=== PATIENT | female | born 1975 | race Caucasian/White ===

== ENCOUNTER 2017-10-13 13:35 | Emergency (ER) | payer MEDICAID ==
[2017-10-13 13:52] VITALS: BMI 26.6
[2017-10-13 13:55] VITALS: BP 119/82; PULSE 103; RESP 20; TEMP 99.1; O2SAT 98
--- NOTE | 2017-10-13 14:05 | C.PDOC ---
History Of Present Illness 41 year old female presents to the ER complaining of chills, sore throat, malaise, generalized body aches, and cough since last night. She did not take any medication for the symptoms. She denies having any chest pain, SOB, abdominal pain, urinary symptoms or rash. Time Seen by Provider: 10/13/17 14:01 Chief Complaint (Nursing): Flu-like Symptoms History Per: Patient History/Exam Limitations: no limitations Onset/Duration Of Symptoms: Days Current Symptoms Are (Timing): Still Present Location Of Pain: Diffuse Myalgias Associated Symptoms: Chills, Sore Throat, Cough Severity: Moderate Past Medical History Reviewed: Historical Data, Nursing Documentation, Vital Signs Vital Signs: Last Vital Signs Temp 99.1 F 10/13/17 13:52 Pulse 103 H 10/13/17 13:52 Resp 20 10/13/17 13:52 BP 119/82 10/13/17 13:52 Pulse Ox 98 10/13/17 16:57 - Medical History PMH: No Chronic Diseases Surgical History: No Surg Hx Family History: States: No Known Family Hx - Social History Hx Alcohol Use: Yes Hx Substance Use: No - Immunization History Hx Tetanus Toxoid Vaccination: No Hx Influenza Vaccination: No Hx Pneumococcal Vaccination: No Review Of Systems Constitutional: Positive for: Chills, Malaise Eyes: Negative for: Vision Change, Redness ENT: Positive for: Throat Pain. Negative for: Ear Pain Cardiovascular: Negative for: Chest Pain Respiratory: Positive for: Cough. Negative for: Shortness of Breath Gastrointestinal: Negative for: Vomiting, Abdominal Pain, Diarrhea Genitourinary: Negative for: Dysuria Skin: Negative for: Rash Neurological: Negative for: Headache Physical Exam - Physical Exam Appears: Non-toxic, No Acute Distress Skin: Normal Color, Warm, Dry, No Rash Head: Atraumatic, Normacephalic Eye(s): bilateral: Normal Inspection Ear(s): Bilateral: Normal (no erythema) Nose: Normal Oral Mucosa: Moist Throat: Normal, No Erythema, No Exudate Neck: Supple Chest: Symmetrical Cardiovascular: Rhythm Regular, No Murmur Respiratory: Normal Breath Sounds, No Accessory Muscle Use, No Rales, No Rhonchi , No Wheezing Gastrointestinal/Abdominal: Normal Exam, Soft, No Tenderness Extremity: Normal ROM, No Deformity, No Swelling Neurological/Psych: Oriented x3, Normal Speech Gait: Steady ED Course And Treatment O2 Sat by Pulse Oximetry: 98 (RA) Pulse Ox Interpretation: Normal Medical Decision Making Medical Decision Making: Patient with multiple symptoms since yesterday. Patient has no fever and exam was unremarkable. Lungs clear bilaterally and O2 saturation is adequate. Patient has not received Flu vaccine. Based on history and exam, as well as widespread influenza these symptoms are most likely Influenza. Recommend supportive treatment. Rx given. Instruct to follow up with primary doctor or clinic. Disposition Counseled Patient/Family Regarding: Diagnosis, Need For Followup, Rx Given - Disposition Referrals: [facility] [Outside] [facility] [Outside] Disposition: HOME/ ROUTINE Disposition Time: 15:23 Condition: GOOD Additional Instructions: You have Influenza Take Tamiflu twice a day for 5 days. Take Tylenol or Motrin alternating every 4-6 hours for Fever 100.4F or higher. Rest and drink plenty of fluids. Follow up with your primary medical doctor or clinic in 2-5 days for further evaluation. Return to the emergency department at any time if symptoms persist or worsen. Usted tiene Influenza [place] Tamiflu dos veces al da zain 5 thomas. [place] Tylenol o Motrin alternando cada 4-6 horas para Fiebre 100.4F o superior. Descansa y natalie muchos lquidos. Tre un seguimiento con matt mdico primario o clnica en 2-5 thomas para justin evaluacin adicional. Regrese al departamento de emergencia en cualquier momento si los sntomas persisten o empeoran. Prescriptions: Ibuprofen [Motrin] 1 tab PO TID PRN #30 tab PRN Reason: Pain Oseltamivir [Tamiflu] 75 mg PO BID #9 cap Promethazine DM [Phenergan DM Syrup] 5 ml PO Q8 PRN #3 oz PRN Reason: Cough Instructions: Influenza (ED) Forms: [facility] [employer] (Costa Rican), Work Excuse Print Language: TURKISH - POA Present On Arrival: None - Clinical Impression Clinical Impression: Influenza - PA / ENRICHMENT ASSISTANT / Resident Statement MD/DO has reviewed & agrees with the documentation as recorded. - Scribe Statement The provider has reviewed the documentation as recorded by the Scribe Summen Chang Provider Attestation All medical record entries made by the Scribe were at my direction and personally dictated by me. I have reviewed the chart and agree that the record accurately reflects my personal performance of the history, physical exam, medical decision making, and the department course for this patient. I have also personally directed, reviewed, and agree with the discharge instructions and disposition.
== END 2017-10-13 15:27 | disposition home or self-care (01) ==
LOC: C.ER 13:35
DX: J11.1 Influenza due to unidentified influenza virus with other respiratory manifestations (principal)

== ENCOUNTER 2018-04-21 23:34 | Emergency (ER) | payer MEDICAID ==
[2018-04-21 23:34] VITALS: BMI 26.6
[2018-04-21 23:44] VITALS: RESP 20; O2SAT 99
[2018-04-22] MEDS ORDERED: Sodium Chloride 0.9% 1,000 ML IV ONE (00:20)
--- NOTE | 2018-04-22 00:20 | C.PDOC ---
History Of Present Illness The patient presents to the ED for evaluation of diarrhea which began after she ate at a barbeque around 3-4 days ago. Patient reports having around 5-6 episodes of loose bowel movements today and reports mild, crampy abdominal pain. Otherwise, patient denies fever, chills, nausea, vomiting. Time Seen by Provider: 04/22/18 00:20 Chief Complaint (Nursing): GI Problem History Per: Patient History/Exam Limitations: no limitations Onset/Duration Of Symptoms: Days Current Symptoms Are (Timing): Still Present Context: Other Severity: Moderate Pain Scale Rating Of: 4 Location Of Pain/Discomfort: Diffuse Radiation Of Pain To:: None Quality Of Discomfort: Dull, Cramping Associated Symptoms: Diarrhea. denies: Fever, Chills, Nausea, Vomiting Exacerbating Factors: Food Alleviating Factors: None Last Bowel Movement: Today Additional History Per: Patient Abnormal Vaginal Bleeding: No Past Medical History Reviewed: Historical Data, Nursing Documentation, Vital Signs Vital Signs: Last Vital Signs Temp 98.4 F 04/21/18 23:41 Pulse 104 H 04/21/18 23:41 Resp 20 04/21/18 23:41 BP 139/93 H 04/21/18 23:41 Pulse Ox 99 04/22/18 00:57 Family History: States: No Known Family Hx - Social History Hx Alcohol Use: Yes Hx Substance Use: No - Immunization History Hx Tetanus Toxoid Vaccination: No Hx Influenza Vaccination: No Hx Pneumococcal Vaccination: No Review Of Systems Constitutional: Negative for: Fever, Chills ENT: Negative for: Throat Pain Cardiovascular: Negative for: Chest Pain Respiratory: Negative for: Shortness of Breath Gastrointestinal: Positive for: Abdominal Pain, Diarrhea. Negative for: Nausea , Vomiting Genitourinary: Negative for: Dysuria Musculoskeletal: Negative for: Back Pain Skin: Negative for: Rash Neurological: Negative for: Weakness Psych: Negative for: Anxiety Physical Exam - Physical Exam Appears: Non-toxic, No Acute Distress Skin: Warm, Dry Cardiovascular: Rhythm Regular Gastrointestinal/Abdominal: Soft, Tenderness, No Distention, No Guarding Back: Normal Inspection Extremity: Normal ROM Extremity: Bilateral: Atraumatic Gait: Steady ED Course And Treatment - Laboratory Results Result Diagrams: 04/22/18 00:53 04/22/18 00:53 O2 Sat by Pulse Oximetry: 99 Pulse Ox Interpretation: Normal Progress Note: Patient is resting comfortably, in no distress, abdomen is soft, no rebound or guarding, and is tolerating PO. Patient has no signs or symptoms to suggest surgical pathology. Patient was advised to follow up without fail with physician/clinic or to return to the ER for reevaluation in 1-2 days. Reevaluation Time: 01:48 Reassessment Condition: Improved Medical Decision Making Medical Decision Making: Upon provider reevaluation patient is feeling better, is medically stable, and requires no further treatment in the ED at this time. Patient will be discharged home . Counseling was provided and all questions were answered regarding diagnosis and need for follow up with the referred clinic. There is agreement to discharge plan. Return if symptoms persist or worsen. Disposition Counseled Patient/Family Regarding: Studies Performed, Diagnosis, Need For Followup, Rx Given - Disposition Referrals: [facility] [Outside] Disposition: HOME/ ROUTINE Disposition Time: 00:20 Condition: STABLE Additional Instructions: Please return if symptoms recur. May also use [employer] for the diarrhea Instructions: Food Poisoning (DC) Forms: [employer] (Kyrgyz) Print Language: ICELANDIC - Clinical Impression Clinical Impression: Diarrhea - Scribe Statement The provider has reviewed the documentation as recorded by the Scribe (Tamika Mckeon) Provider Attestation: All medical record entries made by the Scribe were at my direction and personally dictated by me. I have reviewed the chart and agree that the record accurately reflects my personal performance of the history, physical exam, medical decision making, and the department course for this patient. I have also personally directed, reviewed, and agree with the discharge instructions and disposition.
[2018-04-22] MEDS ORDERED: Sodium Chloride 0.9% 1,000 ML ONE (00:41)
[2018-04-22 00:55] LABS: BASO # 0.1 K/uL (0.0-0.2); BASO % 1.3 % (0.0-2.0); EOS # 0.1 K/uL (0.0-0.7); EOS % 1.5 % (0.0-4.0); HEMOGLOBIN 11.7 g/dL (11.0-16.0); LYMPH # 2.4 K/uL (1.0-4.3); MEAN CELL VOLUME 84.9 fL (81.0-99.0); MEAN CORPUSCULAR HEMOGLOBIN 28.7 pg (27.0-31.0); MEAN CORPUSCULAR HGB CONC 33.9 g/dL (33.0-37.0); MEAN PLATELET VOLUME 7.2 fL (7.2-11.7); MONO # 0.8 K/uL (0.0-0.8); NEUT # 5.2 K/uL (1.8-7.0); NEUT % 60.2 % (50.0-75.0); RBC 4.06 Mil/uL (3.80-5.20); RED CELL DISTRIBUTION WIDTH 13.1 % (11.5-14.5); WHITE BLOOD COUNT 8.6 K/uL (4.8-10.8)
[2018-04-22 01:14] LABS: ALB/GLOB RATIO 1.3 (1.0-2.1); ALBUMIN 3.9 g/dL (3.5-5.0); ALT/SGPT 24 U/L (9-52); AST/SGOT 20 U/L (14-36); BLOOD UREA NITROGEN 11 mg/dL (7-17); CALCIUM 9.2 mg/dl (8.6-10.4); GFR AFRICAN-AMERICAN > 60; GFR NON-AFRICAN AMERICAN > 60; LIPASE 178 U/L (23-300)
[2018-04-22 01:55] LABS: HCG,QUALITATIVE URINE NEGATIVE (NEGATIVE)
[2018-04-22 01:58] LABS: SQUAMOUS EPITHIAL 12 /hpf (0-5); URINE BACTERIA RARE (<OCC); URINE BILIRUBIN NEGATIVE (NEGATIVE); URINE CLARITY Hazy (Clear); URINE COLOR Yellow (YELLOW); URINE GLUCOSE (UA) NORMAL (Normal); URINE LEUKOCYTE ESTERASE NEG Leu/uL (Negative); URINE PROTEIN NEGATIVE (NEGATIVE); URINE UROBILINOGEN NORMAL mg/dL (0.2-1.0)
[2018-04-22 02:01] LABS: URINE BLOOD TRACE (NEGATIVE)
[2018-04-22 02:15] VITALS: BP 130/90; PULSE 100; TEMP 98.6
== END 2018-04-22 02:13 | disposition home or self-care (01) ==
LOC: C.ER 23:34
DX: R19.7 Diarrhea, unspecified (principal)
CPT/HCPCS: 80053; 81001; 83690; 84703; 85025; 96361; 96374; 99284; C9113; J7030

== ENCOUNTER 2018-10-27 10:22 | Emergency (ER) | payer MEDICAID ==
[2018-10-27 10:23] VITALS: BMI 26.6
[2018-10-27 10:33] VITALS: TEMP 98.1
[2018-10-27 12:07] VITALS: BP 101/68; PULSE 81; RESP 19; O2SAT 97
--- NOTE | 2018-10-27 16:40 | C.PDOC ---
History Of Present Illness 42 y/o female presents to the ER complaining of sore throat which has been present for the past 5 days. Patient states that he has been able to tolerate PO. Patient denies having fever,chills, cough, nausea, vomiting, diarrhea, sick contacts, and recent travel. Chief Complaint (Nursing): ENT Problem History Per: Patient History/Exam Limitations: no limitations Onset/Duration Of Symptoms: Days Current Symptoms Are (Timing): Still Present Severity: Moderate Past Medical History Reviewed: Historical Data, Nursing Documentation, Vital Signs Vital Signs: Last Vital Signs Temp 98.1 F 10/27/18 10:30 Pulse 81 10/27/18 12:06 Resp 19 10/27/18 12:06 BP 101/68 10/27/18 12:06 Pulse Ox 97 10/27/18 12:06 - Medical History PMH: No Chronic Diseases Other Surgeries: Hx of surgeries Family History: States: No Known Family Hx - Social History Hx Alcohol Use: Yes Hx Substance Use: No - Immunization History Hx Tetanus Toxoid Vaccination: No Hx Influenza Vaccination: No Hx Pneumococcal Vaccination: No Review Of Systems Except As Marked, All Systems Reviewed And Found Negative. Constitutional: Negative for: Fever, Chills ENT: Positive for: Throat Pain Respiratory: Negative for: Cough Physical Exam - Physical Exam Appears: Non-toxic, No Acute Distress Skin: Normal Color, Warm, Dry Head: Atraumatic, Normacephalic Eye(s): bilateral: Normal Inspection Nose: Normal Oral Mucosa: Moist Throat: Erythema (mild erythema), No Exudate Neck: Supple Lymphatic: Adenopathy (anterior cervical lymphadenopathy) Chest: Symmetrical Cardiovascular: Rhythm Regular Respiratory: Normal Breath Sounds, No Rales, No Rhonchi, No Wheezing Neurological/Psych: Oriented x3, Normal Speech ED Course And Treatment O2 Sat by Pulse Oximetry: 97 (RA) Pulse Ox Interpretation: Normal Medical Decision Making Medical Decision Making: Plan: --Rapid Strep Test --Throat Culture Disposition - Disposition Referrals: [facility], [Non-Staff] - Disposition: HOME/ ROUTINE Disposition Time: 11:55 Condition: GOOD Additional Instructions: BARBI BURDEN, thank you for letting us take care of you today. The emergency medical care you received today was directed at your acute symptoms. If you were prescribed any medication, please fill it and take as directed. It may take several days for your symptoms to resolve. Return to the Emergency Department if your symptoms worsen, do not improve, or if you have any other problems. Please contact your doctor or call one of the physicians/clinics you have been referred to that are listed on the Patient Visit Information form that is included in your discharge packet. Bring any paperwork you were given at discharge with you along with any medications you are taking to your follow up visit. Our treatment cannot replace ongoing medical care by a primary care provider outside of the emergency department. Thank you for allowing the [facility] team to be part of your care today. Follow up with your primary care doctor in 2-3 days for re-evaluation and further management. BARBI BURDEN, cony por dejarnos cuidar de pro miguel. La atencin mdica de emergencia que recibi hoy se dirigi a mitra sntomas agudos. Si le recetaron algn medicamento, llnelo y tmelo segn las indicaciones. Los sntomas pueden tardar varios thomas en resolverse. Regrese al Departamento de Emergencias si mitra sntomas empeoran, no mejoran o si tiene otros problemas. Comunquese con matt mdico o llame a kiki de los mdicos / clnicas a los que arriaza sido referido que figuran en el formulario de Informacin de visita al paciente que se incluye en matt paquete de deborah. Lleve todos los documentos que le entregaron al momento del deborah junto con todos los medicamentos que est tomando para matt visita de seguimiento. Nuestro tratamiento no puede reemplazar la atencin mdica continua por un proveedor de atencin primaria fuera del departamento de emergencias. Cony por permitir que el equipo de [facility] sea parte de matt atencin hoy. Tre un seguimiento con matt mdico de atencin primaria en 2-3 thomas para justin reevaluacin y manejo adicional. Prescriptions: Ibuprofen [Motrin] 600 mg PO Q6 PRN #20 tab PRN Reason: Pain, Moderate (4-7) Instructions: Viral Syndrome (DC) Forms: [employer] (Vietnamese) Print Language: TURKISH - Clinical Impression Clinical Impression: Viral syndrome - Scribe Statement The provider has reviewed the documentation as recorded by the Kassiibe Arturo Downing Provider Attestation: All medical record entries made by the Scribe were at my direction and personally dictated by me. I have reviewed the chart and agree that the record accurately reflects my personal performance of the history, physical exam, me dical decision making, and the department course for this patient. I have also personally directed, reviewed, and agree with the discharge instructions and disposition.
== END 2018-10-27 12:07 | disposition home or self-care (01) ==
LOC: C.ER 10:22
DX: B34.9 Viral infection, unspecified (principal)